=== PATIENT | female | born 1955 | race Caucasian/White ===

== ENCOUNTER 2022-10-07 15:45 | Emergency (ER) | payer MEDICARE, SELFPAY ==
[2022-10-07 16:05] VITALS: BP 153/99; PULSE 125; RESP 18; TEMP 36.8; O2SAT 99
--- NOTE | 2022-10-07 16:06 | ED.GENADULT ---
HPI - General Adult General Chief complaint: Skin/Abscess/Foreign Body Stated complaint: lump behind left ear; warm to touch Time Seen by Provider: 10/07/22 16:06 Source: patient Mode of arrival: ambulatory Limitations: no limitations History of Present Illness HPI narrative: 67-year-old female presents with complaint of redness, swelling, mild pain to left-sided face near left ear for past 2 days. Reports that she has been itching to left Ear canal the past week. Unsure why left ear canal is itchy. unsure if she was bit by insects. states that she just moved into a new home and has been unpacking. Denies fever chills. No changes to hearing. All systems reviewed and negative except as noted above. Related Data Allergies Allergy/AdvReac Type Severity Reaction Status Date / Time morphine AdvReac Intermediate Nausea and Verified 10/07/22 16:11 Vomiting Penicillins AdvReac Mild Rash Verified 10/07/22 16:11 Review of Systems Review of Systems: CONSTITUTIONAL: Denies fever, chills, or sweats. EYES: Denies visual changes, redness, or discharge. ENT: Denies rhinorrhea, congestion, sore throat, or otalgia. CARDIOVASCULAR: Denies chest pain, palpitations, or edema. RESPIRATORY: Denies cough or dyspnea. GASTROINTESTINAL: Denies abdominal pain, nausea, vomiting, or diarrhea. GENITOURINARY: Denies dysuria or hematuria. SKIN: Denies rash or itching. Reports redness, swelling to left side face. MUSCULOSKELETAL: Denies back pain, joint pain, or myalgia. NEUROLOGIC: Denies headache, numbness, or weakness. PSYCHIATRIC: Denies anxiety or depression. All other systems reviewed are negative, except as documented in HPI. PMFSH Comments At time of signature, agree with nursing past medical, surgical, social and family history. There is no relevant family history pertinent to the presenting complaint. Exam Narrative: GENERAL: This is a well-nourished, well-developed patient, in no apparent distress. HEAD: normocephalic, atraumatic. EYES: PERRL. Sclera clear/white. Vision is grossly intact. EARS: External ears normal, , TMs normal without perforation. Hearing grossly intact. Left ear canal is slightly swollen with some mild redness at opening. NOSE: External nose normal NECK: Neck supple, non-tender without lymphadenopathy, masses or thyromegaly. CARDIOVASCULAR: Regular rate and rhythm without murmurs, gallops, or rubs. RESPIRATORY: Clear to auscultation. Breath sounds equal bilaterally. No wheezes, rales, or rhonchi. SKIN: warm, Dry, intact with no suspicious lesions or rash, good texture and turgor. erythema, warmth, swelling to L side of face near ear extends to uppper earlobe and at opening of L ear canal. no drainage. NEURO: awake, alert, and oriented to person, place and time. There were no obvious focal neurologic abnormalities. EXTREMITIES: No joint tenderness, effusion, or edema noted. [facility]: Head images: 1. redness, swelling, tenderness Course Course Level of Care: Express Care Visit Vital Signs Vital signs: Vital Signs Temperature 36.8 C 10/07/22 16:05 Pulse Rate 125 H 10/07/22 16:05 Respiratory Rate 18 10/07/22 16:05 Blood Pressure 153/99 H 10/07/22 16:05 Pulse Oximetry 99 10/07/22 16:05 Oxygen Delivery Room Air 10/07/22 16:05 Temperature 36.8 C 10/07/22 16:05 Pulse Rate 125 H 10/07/22 16:05 Respiratory Rate 18 10/07/22 16:05 Blood Pressure 153/99 H 10/07/22 16:05 Pulse Oximetry 99 10/07/22 16:05 Oxygen Delivery Room Air 10/07/22 16:05 Reviewed Medical Decision Making Vital Signs Vital Signs: Vital Signs Temperature 36.8 C 10/07/22 16:05 Pulse Rate 125 H 10/07/22 16:05 Respiratory Rate 18 10/07/22 16:05 Blood Pressure 153/99 H 10/07/22 16:05 Pulse Oximetry 99 10/07/22 16:05 Oxygen Delivery Room Air 10/07/22 16:05 Temperature 36.8 C 10/07/22 16:05 Pulse Rate 125 H 10/07/22 16:05 Respiratory Rate 18 10/07/22 16:05
== END 2022-10-07 16:17 | disposition home or self-care (01) ==
PROVIDERS: Emergency Provider Nurse Practitioner Family
DX: H60.12 Cellulitis of left external ear (principal)
CPT/HCPCS: 99213; G0463

== ENCOUNTER 2023-12-19 17:01 | Emergency (ER) | payer MEDICARE, SELFPAY ==
--- NOTE | ~2023-12-19 | XR_ITS ---
EXAM: XR abdomen/kub 1V DATE: 12/19/2023 17:38 HISTORY: left side flank pain, hematuria . COMPARISON: None available. FINDINGS: Clear lung bases. Normal bowel gas pattern. No organomegaly. 12 mm ovoid calcification pro jecting over the left sacrum. Degenerative changes in the spine bilateral hips and pubic symphysis. IMPRESSION: 12 mm calcification projecting over the left sacrum, probably too large to represent a di stal ureteral stone and more likely representing a calcified diverticulum, phlebolith, etc.. Reviewed, dictated and finalized at location K. HOUSE INVENTORY CLERK IMPRESSION: 12 mm calcification projecting over the left sacrum, probably too l arge to represent a distal ureteral stone and more likely representing a calcif ied diverticulum, phlebolith, etc..
--- NOTE | 2023-12-19 17:08 | ED.GENADULT ---
HPI - General Adult General Chief complaint: Urogenital-Female Stated complaint: uti symptoms Time Seen by Provider: 12/19/23 17:08 Source: patient Mode of arrival: ambulatory Limitations: no limitations History of Present Illness HPI narrative: 68-year-old female reports to clinic today with complaints UTI symptoms that started yesterday. She denies dysuria, frequency, urgency, and suprapubic pain. She reports that she started having left side and flank pain yesterday that radiated down to the left groin and started drinking cranberry juice and water. Today her symptoms have improved but she did notice blood in her urine. patient denies fever, chills, body aches. Patient is postmenopausal and sexually active in a monogamous relationship with her and has no concern for STI. Related Data Home Medications Medication Instructions Recorded Confirmed No Home Medications 12/19/23 12/19/23 Allergies Allergy/AdvReac Type Severity Reaction Status Date / Time morphine AdvReac Intermediate Nausea and Verified 12/19/23 18:43 Vomiting Penicillins AdvReac Mild Rash Verified 12/19/23 18:43 Review of Systems Review of Systems: CONSTITUTIONAL: Denies fever, chills, or sweats. EYES: Denies visual changes, redness, or discharge. ENT: Denies rhinorrhea, congestion, sore throat, or otalgia. CARDIOVASCULAR: Denies chest pain, palpitations, or edema. RESPIRATORY: Denies cough or dyspnea. GASTROINTESTINAL: Denies abdominal pain, nausea, vomiting, or diarrhea. GENITOURINARY: Denies dysuria, positive hematuria. left flank pain that radiates to her left groin and left lower abdomen that have improved since yesterday. SKIN: Denies rash or itching. MUSCULOSKELETAL: Denies back pain, joint pain, or myalgia. NEUROLOGIC: Denies headache, numbness, or weakness. PSYCHIATRIC: Denies anxiety or depression. PMFSH Comments At the time of my signature I agree with nursing past medical history, surgical, social, and family history. There is no relevant family history pertinent to the presenting complaint. Exam Narrative: GENERAL: Well-appearing, well-nourished, and in no acute distress. HEAD: Normocephalic, atraumatic. EYES: PERRLA and EOMI. ENT: Nares clear, no rhinorrhea or epistaxis. Mucous membranes moist. NECK: Supple. No lymphadenopathy CHEST: Clear to auscultation. No respiratory distress. HEART: Regular rate and rhythm. No murmur heard. Normal peripheral pulses. ABDOMEN: Soft, nontender, nondistended, normal active bowel sounds. Positive CVA tenderness on the left side. EXTREMITIES: Normal range of motion. No edema. SKIN: Warm, dry, no rash. NEURO: No focal deficits. Alert and oriented x3. Course Course Level of Care: Express Care Visit Vital Signs Vital signs: Vital Signs Temperature 37.1 C 12/19/23 17:12 Pulse Rate 113 H 12/19/23 17:12 Respiratory Rate 18 12/19/23 17:12 Blood Pressure 100/83 12/19/23 17:12 Pulse Oximetry 100 12/19/23 17:12 Oxygen Delivery Room Air 12/19/23 17:12 Temperature 37.1 C 12/19/23 17:12 Pulse Rate 113 H 12/19/23 17:12 Respiratory Rate 18 12/19/23 17:12 Blood Pressure 100/83 12/19/23 17:12 Pulse Oximetry 100 12/19/23 17:12 Oxygen Delivery Room Air 12/19/23 17:12 Vital signs reviewed. Transfer Transfered to: [place] Transportation: Other ( private Vehicle) Transfer rationale: patient being transferred to ER for suspicion of large kidney stone with possible infection Accepting physician: Dr. Garcia Medical Decision Making MDM Narrative Medical decision making narrative: due to patient's urine dip results, description of symptoms, and physical exam findings a KUB was ordered and will discuss results with patient. Based on KUB results will develop further treatment plan. Differential Diagnosis Differential Diagnosis: Differential diagnosis: Uncomplicated lower UTI, uncomplicated UTI, pyelonephritis Vital Signs Stacey
[2023-12-19 17:12] VITALS: BP 100/83; PULSE 113; RESP 18; TEMP 37.1; O2SAT 100
== END 2023-12-19 18:25 | disposition short-term general hospital (02) ==
LOC: EXPTROY 17:04
PROVIDERS: Emergency Provider Nurse Practitioner Family
DX: R31.9 Hematuria, unspecified (principal); R93.5 Abnormal findings on diagnostic imaging of other abdominal regions, including retroperitoneum
CPT/HCPCS: 74018; 81003; 99213; G0463

== ENCOUNTER 2023-12-19 18:43 | Emergency (ER) | payer MEDICARE, SELFPAY ==
--- NOTE | ~2023-12-19 | CT_ITS ---
EXAMINATION: CT abdomen pelvis wo con DATE: 12/19/2023 19:38 INDICATION: flank pain, calcification on KUB TECHNIQUE: Computed tomography (CT) of the abdomen and pelvis was performed without intravenous contr ast. Automated exposure control and iterative reconstruction technique were employed. The dose-length product was 763.28 mGy-cm. COMPARISON: X-ray abdomen 12/19/2023. FINDINGS: Lower thorax: Unremarkable Liver: Normal. Biliary/Gallbladder: Gallbladder is normal. No bile duct dilation. Pancreas: No mass or duct dilation. Spleen: Normal. Adrenals:No mass. Kidneys: Mild left perinephric stranding. Severe left hydronephrosis. Normal right kidney. GI tract: No small or large bowel dilation. Normal appendix. Diverticulosis without diverticulitis. Mesentery/Peritoneum: No ascites, mass, or free air. Retroperitoneum: No mass. Pelvis: 8 x 11 mm calcification in the distal left ureter. Otherwise the pelvic organs are within nor mal limits. Soft Tissues: Soft tissues and body wall unremarkable. Bones: No acute osseous finding. IMPRESSION: 8 x 11 mm calcification in the distal left ureter causing moderate-severe obstructive uropathy. Reviewed, dictated and finalized at location K. N COMBINER IMPRESSION: 8 x 11 mm calcification in the distal left ureter causing moderate-severe obstr uctive uropathy.
[2023-12-19 18:56] VITALS: BP 160/90; PULSE 111; RESP 20; TEMP 36.8; O2SAT 100
--- NOTE | 2023-12-19 19:46 | PC.NURSE ---
this rn attempted to go into pt room to start an IV. Pt began to state Why do I need an IV, it would be nice to know if someone would have explained all this to me before coming in the room . This rn explained to pt that she was in CT and this RN was unable to accompany pt into CT. This Rn stated to pt that blood work was ordered and I was going to avoid sticking the pt multiple times and get blood work an IV at the same time. This rn explained to the pt pts' options about blood work and iv. Pt then stated I don't want that right now, I haven't even seen a doctor . This Rn explained to pt that I could wait until edp Dr. Mathis evaluated pt.
[2023-12-19 20:17] LABS: Basophils Percent Auto 0.5 % (0.2-1.2); Eosinophils Absolute Auto 0.1 K/mm3 (0-0.3); Eosinophils Percent Auto 1.7 % (0-4.4); Hematocrit 45.1 % (37.0-47.0); Hemoglobin 14.5 g/dL (12.0-15.0); Immature Granulocyte Absolute 0.02 K/mm3 (0.00-0.031); Immature Granulocyte Percent A 0.3 % (0-0.5); Lymphocytes Absolute Auto 1.06 K/mm3 (0.9-3.2); Lymphocytes Percent Auto 16.2 % (18.3-44.2); Mean Corpuscular HGB Conc 32.2 g/dl (32-36); Mean Corpuscular Hemoglobin 28.9 pg (26-34); Monocytes Absolute Auto 0.6 K/mm3 (0.1-0.6); Monocytes Percent Auto 9.6 % (2.6-8.5); Neutrophils Absolute Auto 4.7 K/mm3 (1.3-6.7); Neutrophils Percent Auto 71.7 % (45.5-73.1); Platelet Count Result 211 k/mm3 (150-375); Red Blood Count 5.01 M/mm3 (4.2-5.4); Red Cell Distribution Width 12.6 % (11.5-14.5); White Blood Count 6.5 K/mm3 (4.5-10.0)
[2023-12-19 20:29] LABS: Alanine Aminotransferase 21 U/L (6-35); Albumin Level 4.1 g/dL (3.5-5.1); Alkaline Phosphatase 90 U/L (38-126); Anion Gap 8 mmol/L (8-16); Aspartate Amino Transferase 32 U/L (14-36); Bilirubin,Total 0.9 mg/dL (0.2-1.3); Blood Urea Nitrogen 17 mg/dL (7-17); Calcium 9.5 mg/dL (8.4-10.2); Carbon Dioxide 28 mmol/L (22-30); Chloride 104 mmol/L (98-107); Estimated CRCL calculation 50 ml/min; Estimated Glomerular Filt Rate 49; Glucose 113 mg/dL (65-110); Lipase 51 U/L (23-300); Potassium 3.5 mmol/L (3.4-5.0); Sodium 140 mmol/L (137-145)
--- NOTE | 2023-12-19 20:53 | ED.GENADULT ---
HPI - General Adult General Chief complaint: Back Pain/Injury Stated complaint: possible kidney stone Time Seen by Provider: 12/19/23 19:32 History of Present Illness HPI narrative: The patient is a 68-year-old female who presents emergency department with chief complaint of flank pain. The patient reports that she started having some discomfort in the left flank area patient reports that the pain has been mostly controlled at this time but went to [facility] and had a urinalysis that showed there was some red blood cells in her urine and they sent her to the emergency department for evaluation of possible kidney stone. The patient reports that she intermittently is having some discomfort in the left flank area that did reiterate ate around to the front of her abdomen patient reports no nausea denies vomiting denies diarrhea reports that she has had no prior history of kidney stones and reports that her pain has not been severe. Related Data Allergies Allergy/AdvReac Type Severity Reaction Status Date / Time morphine AdvReac Intermediate Nausea and Verified 12/19/23 18:43 Vomiting Penicillins AdvReac Mild Rash Verified 12/19/23 18:43 Review of Systems Review of Systems: A 10 system review of systems was completed on the patient and is negative except for what is stated in the HPI. Nursing and ancillary documentation was reviewed. Exam Narrative: GENERAL: Well-appearing, well-nourished, and in no acute distress. HEAD: Normocephalic, atraumatic. EYES: PERRLA and EOMI. ENT: Nares clear, no rhinorrhea or epistaxis. Mucous membranes moist. NECK: Supple. CHEST: Clear to auscultation. No respiratory distress. HEART: Regular rate and rhythm. No murmur heard. Normal peripheral pulses. ABDOMEN: Soft, nontender, nondistended, normal active bowel sounds. EXTREMITIES: Normal range of motion. No edema. SKIN: Warm, dry, no rash. NEURO: No focal deficits. Alert and oriented x3. PSYCH: Normal mood and affect. Course Vital Signs Vital signs: Vital Signs Temperature 36.8 C 12/19/23 18:56 Pulse Rate 111 H 12/19/23 18:56 Respiratory Rate 20 12/19/23 18:56 Blood Pressure 160/90 H 12/19/23 18:56 Pulse Oximetry 100 12/19/23 18:56 Oxygen Delivery Room Air 12/19/23 18:56 Temperature 36.8 C 12/19/23 18:56 Pulse Rate 111 H 12/19/23 18:56 Respiratory Rate 20 12/19/23 18:56 Blood Pressure 160/90 H 12/19/23 18:56 Pulse Oximetry 100 12/19/23 18:56 Oxygen Delivery Room Air 12/19/23 18:56 Medical Decision Making MDM Narrative Medical decision making narrative: Differential diagnosis includes pyelonephritis, UTI, ureterolithiasis, sepsis Laboratory studies were obtained the patient showed a white count of 6.5 electrolytes showed a creatinine 1.1 urinalysis showed 21-50 white blood cells with 2+ leukocyte esterase urine culture has been set. CT scan of the abdomen pelvis showed a 8 x 11 mm stone in the distal ureter. Given the patient does have a urinary tract infection a urine culture was sent the patient will be started on Keflex and also started on Flomax. The case was discussed with Urology and the patient should be seen early this week if her pain worsens she should return to the emergency department Vital Signs Vital Signs: Vital Signs Temperature 36.8 C 12/19/23 18:56 Pulse Rate 111 H 12/19/23 18:56 Respiratory Rate 20 12/19/23 18:56 Blood Pressure 160/90 H 12/19/23 18:56 Pulse Oximetry 100 12/19/23 18:56 Oxygen Delivery Room Air 12/19/23 18:56 Temperature 36.8 C 12/19/23 18:56 Pulse Rate 111 H 12/19/23 18:56 Respiratory Rate 20 12/19/23 18:56 Blood Pressure 160/90 H 12/19/23 18:56 Pulse Oximetry 100 12/19/23 18:56 Oxygen Delivery Room Air 12/19/23 18:56 Lab Data 12/19/23 20:05 12/19/23 20:05 Labs: Lab Results 12/19/23 12/19/23 12/19/23 Range/Units 20:05 20:05 20:05 WBC 6.5 (4.5-10.
[2023-12-19 21:16] LABS: Appearance Urine Cloudy (Clear); Bacteria Urine None Seen /hpf; Bilirubin Urine Negative (Negative); Blood Urine 3+ (Negative); Calcium Oxalate Crystals Urine Present /hpf; Color Urine Dark Yellow (Yellow); Glucose Urine UA Negative (Negative); Ketones Urine Trace mg/dL (Negative); Leukocyte Esterase Ur 2+ LEU/UL (Negative); Nitrate Urine Negative (Negative); Non Pathogenic Casts 0-2; Protein Urine Trace mg/dL (Negative); RBC Urine >100 /hpf (0-2); Specific Grav Ur 1.027 (1.001-1.035); Squamous Epithelial Cell Urine Few /hpf (Few); WBC Urine 21-50 /hpf; pH Urine 5.5 (5.0-9.0)
[2023-12-19 21:19] LABS: Add Urine Microscopic? YES
[2023-12-19] MEDS: TAMSULOSIN HCL 0.4 MG CAPSULE PO (21:54)
[2023-12-19] MEDS: CEPHALEXIN 500 MG CAPSULE PO (21:54)
== END 2023-12-19 22:00 | disposition home or self-care (01) ==
PROVIDERS: Emergency Provider Emergency Medicine
DX: N20.1 Calculus of ureter (principal); N39.0 Urinary tract infection, site not specified
CPT/HCPCS: 36415; 74018; 74176; 80053; 81001; 81003; 83690; 85025; 87086; 99284; A9270

== ENCOUNTER 2023-12-24 01:31 | Day surgery (SDC) | payer MEDICARE, SELFPAY ==
[2023-12-23 15:32] VITALS: BMI 30.4
--- NOTE | 2023-12-23 15:50 | PC.NURSE ---
Report to the Outpatient Waiting Room, entrance under the green pavilion located off [facility], at time _11:15AM on date ___12/24/23____. Planned Procedure Time: ___1:15PM . Time changes happen often and if your time is changed the preop area will call you the afternoon before. - You and your visitor will be asked to self-screen and do not enter if you have any COVID symptoms. - A mask is optional within the hospital at this time. Patients may have clear liquids (water, carbonated beverages, clear teas, apple juice) until 3 hours prior to surgery with a maximum of 20 ounces. - No food from midnight until time of surgery. Take the following medications with a SIP of water the morning of surgery: ____CEPHALEXIN. HYDROCODONE & ONDANSETRON NEEDED._ DO NOT STOP ANY OF YOUR OTHER PRESCRIPTION MEDICATIONS PRIOR TO SURGERY ?EXCEPT THE FOLLOWING Medications to discontinue per physician ___NONE Date to take last dose Please no make-up, nail beninese, hairspray, perfume, deodorant, or body powder the day of surgery. No jewelry (including any body piercings) or valuables the day of surgery, leave them at home. Please take a shower or bath the night before, or the morning of, surgery with an antibacterial soap. Wear comfortable, loose fitting clothing. - Jewelry must be removed prior to entering the operating room. Rings and piercings that are not removed may be cut off. - The hospital will not accept responsibility for valuables. - Please leave all valuables, including medications, at home the day of surgery. If you are going home after surgery, a licensed auto driver must drive you home. - NO public transportation without another adult if you receive anesthesia. - We recommend that an adult stay with you for 24 hours following discharge. - We also recommend that you do not drive, make important decision, drink alcoholic beverages, or take any drugs that were not prescribed by your health care provider for at least 24 hours after your discharge time. Follow any additional instructions given to you from your surgeon. If you or anyone in your household have experienced Covid symptoms in the past week, please notify your surgeon or the nurse liaison at the phone number below for possible testing. Telephone instructions given to ___PATIENT and asked if any additional questions and then verbalized understanding. Patient advised to call surgeon office or pre surgery nurse liaison [phone] if any additional questions.
[2023-12-24] VITALS (7 sets, daily range): BP systolic 115–158; BP diastolic 64–92; PULSE 80–121; RESP 10–18; TEMP 36.6–36.8; O2SAT 96–100
--- NOTE | ~2023-12-24 | XR_ITS ---
EXAMINATION: XR retrograde pyelo w/stent LT DATE: 12/24/2023 13:49 INDICATION: Left-sided ureteral stent placement TECHNIQUE: A single fluoroscopic image of the left lower quadrant was obtained during procedure perfo rmed by Dr. Cm. Radiologist was not present for the imaging or procedure. The amount of fluoros copy time used during this procedure was 0.8 minutes. COMPARISON: None. FINDINGS/IMPRESSION: A left internal ureteral stent has been advanced over a wire with proximal loop formed in the region of the left renal pelvis. See procedure note for further detail. Reviewed, dictated and finalized at location A. ER OPERATOR
--- NOTE | ~2023-12-24 | XR_ITS ---
EXAMINATION: XR abdomen/kub 1V INDICATION: Left renal stone TECHNIQUE: Supine views of the abdomen were obtained on 2 radiographs. COMPARISON: CT, 12/19/2023 FINDINGS: A 9 mm stone projects in the distal left ureter over the sacrum. No additional urolithiasis is identified. The bowel gas pattern is normal. There is mild osteoarthritis of the hips. IMPRESSION: 1. 9 mm stone projecting in the distal left ureter of the sacrum. Reviewed, dictated and finalized at location B. L SKINNER
[2023-12-24 12:34] LABS: Prothrombin Time 13.3 Seconds (11.1-14.7)
[2023-12-24 12:35] LABS: Partial Thromboplastin Time 25.1 SECONDS (22.3-36.8)
--- NOTE | 2023-12-24 12:42 | P.PNAN_ITS ---
Anes - Initial Pre Proc Eval Procedure: Operation Date: 12/24/23 13:15 Proposed Procedures p Cystoscopy, Left Ureteroscopy, Left Retrograde Pyelogram, Left Stone Extraction, Possible Left Stent Placement, Possible Holmium Laser, - Buddy Cm MD s Possible Left Extracorporeal Shock Wave Lithotripsy - Buddy Cm MD Date/Time: 12/24/23 12:42 Surgeon: Buddy Cm MD Pre Op Diagnosis: left uretral stone Patient Data Age: 68 Gender: F Height: 1.73 m Weight: 91 kg Last Vital Signs Temp 36.8 C 12/24/23 11:43 Pulse 121 H 12/24/23 11:43 Resp 16 12/24/23 11:43 BP 158/84 H 12/24/23 11:43 Pulse Ox 100 12/24/23 11:43 O2 Del Method Room Air 12/24/23 11:43 Allergies Allergy/AdvReac Type Severity Reaction Status Date / Time morphine AdvReac Intermediate Nausea and Verified 12/24/23 11:52 Vomiting Penicillins AdvReac Mild Rash Verified 12/24/23 11:52 Home Medications Medication Instructions Recorded Confirmed Type cephalexin 500 mg capsule 500 mg PO Q12H 7 days #14 caps 12/19/23 12/23/23 Rx hydrocodone 5 mg-acetaminophen 325 1 tablet PO Q6H PRN pain 3 days 12/19/23 12/23/23 Rx mg tablet #12 tabs ondansetron 4 mg disintegrating 4 mg PO Q8H PRN nausea and 12/19/23 12/23/23 Rx tablet vomiting #10 tabs tamsulosin 0.4 mg capsule (Flomax) 0.4 mg PO DAILY #10 caps 12/19/23 12/23/23 Rx Laboratory Tests 12/24/23 12:11 PT 13.3 Seconds (11.1-14.7) INR 1.0 APTT 25.1 SECONDS (22.3-36.8) Patient hx anesthesia problems: none Family hx anesthesia problems: none Results Review: All pre-operative results and documents have been reviewed as part of the pre- operative evaluation. [facility] Past Medical History Medical History (Updated 12/24/23 @ 12:42 by Victorino Stallworth MD) Obesity Renal stones Social History Social History Smoking packs per day: 1 Smoking cigarettes per day: 20.0 Years smoked: 10 Smoking pack-years: 10.00 Smoking status: Former smoker Tobacco type: cigarettes Smoking end date: 05/15/98 Alcohol intake: current Living arrangements: with family Additional living arrangements comments: [facility] Spiritual care concerns: No Anes - Eval Final PreProcedure Day of Procedure 12/24/23 12:42 Patient weight: obese Heart: regular rate and rhythm Lungs: clear to auscultation Airway: Mallampati scale class II Neurological: alert and oriented Last oral intake: >/= 8 hours ASA classification: II Anesthetic plan: proceed Anesthesia type and monitoring: general LMA and standard monitoring Results Review: All pre-operative results and documents have been reviewed as part of the pre- operative evaluation. Informed Consent: The patient's anesthetic plan and its attendant risks and benefits were discussed with the patient/family/POA. Questions were solicited and answers provided to the satisfaction of the patient/family/POA.
--- NOTE | 2023-12-24 12:42 | WPDHPUPDATE1 ---
History and Physical Update Update Date/Time: 12/24/23 12:42 History and Physical has been reviewed, including an updated exam of the patient. There are NO changes in the patient's condition. Risks, benefits, and alternatives have been discussed and questions answered. Patient agrees to proceed with procedure. Proceed with cystoscopy, left retrograde pyelogram, left ureteroscopy with laser, stone extraction, left ureteral stent placement
[2023-12-24] MEDS: ceFAZolin 2 GM/D5W 50 ML 2 GM/50 ML BAG IVPB (13:10)
[2023-12-24] MEDS: LIDOCAINE HCL 2% GEL UROJET 10 ML PKG MUCOUS MEM (13:48)
--- NOTE | 2023-12-24 13:51 | P.OP_ITS ---
Procedure Note - Detailed Date of Procedure 12/24/23 Pre-op Diagnosis left uretral stone-1 cm Post-op Diagnosis Same Procedure Performed Cystoscopy, left retrograde pyelogram, left ureteroscopy with holmium laser, stone extraction, stent placement 4.8 Anguillan contour Surgeon Buddy Cm MD Anesthesia General Description of Procedure Patient is taken to the operative suite correctly identified. Once anesthesia was obtained she was placed in dorsal lithotomy position and prepped and draped usual sterile fashion. Twenty-two Anguillan scope inserted the bladder. There were no tumors noted. Left orifice was cannulated with a guidewire. It was difficult to manipulate it past the stone. I dilated with an 8/10 dilator. Rigid ureteral scope was inserted. The stone was too large to retrieve 1 piece. Two hundred micron fiber was used to laser the stone into sub small pieces that very minimal amount was available for analysis. Reinspection revealed no significant stone burden. Pyelogram was performed confirm placement of the stent. 4.8 Anguillan contour stent was then placed with the proximal end coiled in the renal pelvis the distal in the bladder. Bladder was drained. 2% viscous lidocaine was inserted to the urethra the patient is taken recovery stable condition. She will be discharged home and follow-up in 1-2 weeks for stent removal. She is to call for that appointment. This completes dictation. Please send a copy this op note to my office. Estimated Blood Loss 0 Drains Yes Packing No Pathology Yes Complications No immediate complications Condition Stable Disposition PACU
[2023-12-24] MEDS: LACTATED RINGERS 1,000 ML 30 ML IV CONT ×2 (13:58)
== END 2023-12-24 15:08 | disposition home or self-care (01) ==
PROVIDERS: Visit Provider Urology
PROC: (CPT 52352; principal; 2023-12-24 13:15)
DX: N20.1 Calculus of ureter (principal); E66.9 Obesity, unspecified; Z68.30 Body mass index [BMI] 30.0-30.9, adult; Z87.891 Personal history of nicotine dependence
CPT/HCPCS: 52356; 36415; 74018; 74420; 82365; 85610; 85730; 88300; C1769; C2617; J0690; J1100; J2250; J2405; J2704; J3010; J7120; Q9966